=== PATIENT | female | born 1990 | race African-American/Black ===

== ENCOUNTER 2017-05-17 07:55 | Observation (INO) | payer MEDICAID ==
[~2017-05-17] VITALS: Ht 167.6 cm; Wt 90.7 kg
[2017-05-17] MEDS ORDERED: PNV1TABL76 MT (08:29)
[2017-05-17] MEDS ORDERED: FERR325T6 PO (08:29)
== END 2017-05-17 08:50 | disposition home or self-care (01) ==
LOC: L&D 07:55
PROVIDERS: ADMIT Specialist; ATTEND Specialist
DX: O42.913 Preterm premature rupture of membranes, unspecified as to length of time between rupture and onset of labor, third trimester (principal); Z3A.35 35 weeks gestation of pregnancy
CPT/HCPCS: 99281; G0378